=== PATIENT | male | born 2005 | race Caucasian/White ===

== ENCOUNTER 2025-04-14 08:14 | Emergency (ER) | payer SELFPAY ==
[2025-04-14 08:15] VITALS: BP 136/90; PULSE 81; RESP 18; TEMP 36.9; O2SAT 100; BMI 28.2
[2025-04-14 08:17] VITALS: BP 136/90; PULSE 81; RESP 18; TEMP 36.9; O2SAT 100
--- NOTE | 2025-04-14 08:40 | RAD_ITS ---
PROCEDURE: CHEST PA AND LATERAL 04/14/2025 REASON FOR EXAM: INTERMITTENT LEFT-SIDED CHEST PAIN, URI SYMPTOMS TECHNIQUE: Procedure Code: RADCXR Modality: DX Procedure: CHEST PA AND LATERAL COMPARISON: None FINDINGS: Hardware: None Heart: The heart size is normal. Mediastinum: The mediastinal contour is unremarkable. Lungs: The lungs are clear. Bones: The bones are unremarkable. RAD/Chest PA and Lateral IMPRESSION: NO ACUTE FINDINGS. Reading Location: [place] [id number]
--- NOTE | 2025-04-14 09:03 | EDS_ITS ---
HPI History of Present Illness Chief Complaint: Shortness of Breath Detail of Chief Complaint: Left-sided chest pain this is primary chief complaint Informant: patient Onset/Context/Timing Onset: Month(s) Activity at onset: sudden and - (There is no exacerbating, precipitating or alleviating factors) Timing: Intermittent Quality: Positive for Sharp Location: Left Parasternal Current Severity: Gone Maximum Severity: Severe Worsened By: Nothing Relieved By: Nothing Associated Symptoms: Positive for Dyspnea (Takes his breath away.); Negative for Nausea, Vomiting, Diaphoresis, Cough, Fever, Lightheadedness, Acid Reflux or Palpitations Narrative Narrative: Patient is a 19-year-old male. He has had intermittent chest pain for some time. Spent occurring more frequently and longer in duration. Described as sharp. Left parasternal. There is no associated fever, chills night sweats. He does have mild nasal congestion. He does have a cough which is nonproductive. He denies history of VTE. He has no risk factors for VTE including no trip longer than 4 hours in duration. Prior Similar Symptoms: Yes Recent Illness/Hospitalization: No CVD Risk Factors: Negative for Hypertension, Diabetes, Hypercholesterolemia, Family History 1' </=55 or Smoking (Electronic cigarettes) PE Risk Factors: Negative for Recent Travel/Surgery, Recent Immobilization, Prior DVT or PE, Cancer or OCP + Smoking + >/=35 TAD Risk Factors: Negative for Marfan's Syndrome, Hypertension or Family History [facility] Medical History (Updated 04/14/25 @ 09:[address] Mannie Reyes MD) Physical exam, pre-employment Medical History no medical history no medical history Home Medications ?Medication ?Instructions ?Recorded ?Last Taken ?Type NK 04/14/25 Unknown History Allergy/AdvReac Type Severity Reaction Status Date / Time Penicillins (PCN) Allergy rash Verified 04/14/25 08:14 Surgical History History of tonsillectomy and adenoidectomy Social History (Updated 04/14/25 @ 09:[address] Mannie Reyes MD) household members: significant other Smoking Status: Current every day smoker tobacco type: e-cigarettes ROS ROS ED Constitutional Constitutional ED: Denies chills, fever(s), subjective or sweats Eyes Eyes: Reports none ENT ENT ED: Reports other Details: Postnasal drainage ; Denies ear pain, rhinorrhea or sore throat Cardiovascular Cardiovascular: Reports as per HPI; Denies orthopnea or paroxysmal nocturnal dyspnea Respiratory/Chest Respiratory/Chest: Denies cough, dyspnea, dyspnea on exertion, orthopnea, paroxysmal nocturnal dyspnea or sputum Gastrointestinal Gastrointestinal: Reports diarrhea; Denies abdominal pain, constipation, melena, nausea or vomiting Genitourinary Genitourinary ED: Denies dysuria, hematuria or urinary frequency Musculoskeletal Musculoskeletal: Denies arthralgias, back pain or myalgias Integumentary Denies rash Neurologic Neurologic: Denies headache(s) or paresthesias Psychiatric Psychiatric: Denies anxiety or depression Endocrine Endocrinology: Denies cold intolerance or heat intolerance Hematologic/Lymphatic Hematologic/Lymphatic: Denies easy bleeding or easy bruising Allergic/Immunologic Allergic/Immunologic ED: Denies mouth swelling or tongue swelling EXAM Physical Exam Const Vital Signs: 04/14/25 08:15 04/14/25 08:17 04/14/25 08:32 Temperature 98.4 F 98.4 F Temperature Source Oral Oral Pulse Rate 81 81 Respiratory Rate 18 18 Respiratory Effort Normal Respiratory Depth Normal Respiratory Pattern Normal Blood Pressure 136/90 H 136/90 H Blood Pressure Mean 105 105 Pulse Ox 100 100 Oxygen Delivery Method Room Air Room Air Positive well nourished and well developed General Appearance ED: well developed and NAD HEENT Reports moist mucous membranes normocephalic Eyes PERRL and EOMs intact bilaterally General Eye ED: Negative for pale conjunctiva or scleral icterus Neck no lymphadenopathy, supple and no JVD Neck Narrative: Trachea is midline. There is no stridor. Chest Wall palpation of chest normal Resp normal respiratory effort and clear to auscultation bilaterally Cardio regular rate, regular rhythm, S1 normal heart sound, S2 normal heart sound and no murmurs GI normal to inspection, nondistended, normoactive bowel sounds, soft to palpation, non-tender and non-distended Extremity normal to inspection Extremity Narrative: There is no asymmetry, swelling, discoloration, leg vein distention, palpable cords or tenderness along the distribution of the deep venous system. Neuro oriented x3 and CN's II-XII intact bilaterally Sensorium / Orientation: awake and alert Psych mental status grossly normal Skin no rashes or lesions noted and no wounds MDM MDM MDM Narrative Medical decision making narrative: Patient with sharp intermittent left-sided chest pain. Patient has no risk factors for PE and is PERC negative and Wells score is less than 3. History is not consistent with acute coronary disease and reason troponin was not obtained. Clinically patient does not have a pneumothorax with symmetric breath sounds. Furthermore chest x-ray was obtained and reveals no evidence of pneumothorax.. Patient does not have fever or chills and chest x-ray is not show evidence of infiltrate therefore pneumonia is been ruled out. Aortic dissection is not a consideration either. Radiography Chest X-Ray - ED: 2 View and Read by ED Physician (Reveals a normal cardiac silhouette and size. Lung parenchyma is normal. There is no effusion or infiltrate. Hilum is unremarkable. Osseous structures reveal no acute process.) Diagnostic Testing: Clinical Impression(s) from Imaging Studies Chest X-Ray 04/14/25 08:40 IMPRESSION: NO ACUTE FINDINGS. Reading Location: [facility]- Differential Diagnosis Chest pain/SOB: pulmonary embolism Reason(s) PE less likely: Positive for PERC negative, Well's <3, not tachycardic and not hypoxic and aortic dissection Reason(s) Aortic dissection less likely:: Positive for normal vascular exam, no history of HTN, normal neurological exam, no significant risk factors for dissection, no widened mediastinum on CXR, pain not sudden onset, no ripping/tearing pain, no pain to back and blood pressure appropriate in ED Treatment and Re-Evaluation :: Patient was informed of chest x-ray results and reason why blood test were obtained. He had no questions. He was discharged to home to follow-up with the [facility] since he has no insurance. He was told it is in his best interest to stop vaping Discharge Plan Triage Chief Complaint: Shortness of Breath ED Provider: Mannie Reyes Dx/Rx/DC Orders Clinical Impression: Intermittent left-sided chest pain, Elevated blood pressure reading without diagnosis of hypertension Instructions: ED Chest Pain, Noncardiac, ED Chest Pain, Uncertain Cause Prescriptions: No Action NK Primary Care Provider: Care Physician,No Primary Referrals: Care Physician,No Primary [Primary Care Provider, Medical] [facility] [Non-Staff, Medical] - 1 Week if not improving Activity Restrictions/Additional Instructions: You can take either Advil or Aleve for your chest pain. Print Language: Iranian Disposition Disposition: Home, Self Care
[2025-04-14 09:20] VITALS: BP 138/82; PULSE 80; RESP 16; TEMP 36.6; O2SAT 99
== END 2025-04-14 09:23 | disposition home or self-care (01) ==
PROVIDERS: Emergency Provider Emergency Medicine; Visit Provider Emergency Medicine
DX: R06.02 Shortness of breath (principal); R03.0 Elevated blood-pressure reading, without diagnosis of hypertension; F17.290 Nicotine dependence, other tobacco product, uncomplicated; R07.9 Chest pain, unspecified
CPT/HCPCS: 71046; 99282